=== PATIENT | female | born 1975 | race Caucasian/White ===

== ENCOUNTER 2020-05-22 20:00 | Outpatient (CLI) | payer BC, SELFPAY | END 2020-05-22 20:01 | disposition home or self-care (01) | LOC: SLEEP 05-23 10:11 | PROVIDERS: Family Provider Internal Medicine; Visit Provider Family Medicine | DX: G47.33 Obstructive sleep apnea (adult) (pediatric) (principal) | CPT/HCPCS: 95811 ==